=== PATIENT | male | born 1970 | race Caucasian/White ===

== ENCOUNTER → 2017-01-30 | Outpatient (CLI) | payer OTHER ==
[~2017-01-30] MED LIST: DRV65 PO; SERT50TA PO
--- NOTE | 2017-01-30 14:24 | DIAGNOSTIC IMAGING REPORT ---
LEFT HAND MIN 3 VIEWS ROUTINE CLINICAL HISTORY: PUNCTURE HAND W EARLY CELLULITIS pain. Edema. COMPARISON: None. DISCUSSION: The bones and joint spaces appear intact. There is no evidence of fracture, dislocation or bony disease. Generalized soft tissue edematous change. Small metallic foreign body adjacent to the radial styloid. No evidence for bony destructive process. IMPRESSION: Generalized soft tissue edematous change. No evidence for acute bony abnormality. The above report was generated using voice recognition software. It may contain grammatical, syntax or spelling errors. Electronically signed by: Heath Gallardo M.D. 01/30/2017 2:22 PM Dictated Date/Time: 01/30/2017 2:22 PM
== END | disposition home or self-care (01) ==
LOC: C.RAD1850 14:09
PROVIDERS: ATTEND Preventive Medicine Occupational Medicine
DX: S61.432A Puncture wound without foreign body of left hand, initial encounter (principal); X58.XXXA Exposure to other specified factors, initial encounter; L03.114 Cellulitis of left upper limb

== ENCOUNTER → 2017-05-02 | Outpatient (CLI) | payer OTHER | END | disposition home or self-care (01) | LOC: C.LABSPEC 15:42 | PROVIDERS: ATTEND Preventive Medicine Occupational Medicine | DX: Z77.21 Contact with and (suspected) exposure to potentially hazardous body fluids (principal) ==